=== PATIENT | male | born 1945 | race Caucasian/White ===

== ENCOUNTER 2019-08-08 12:51 | Emergency (ER) | payer MEDICARE ==
[2019-08-08] MEDS ORDERED: Ondansetron PF 4 MG/2 ML Vial ONE (13:37)
[2019-08-08] MEDS ORDERED: Morphine 4 MG/ML VIAL ONE (13:37)
[2019-08-08 14:00] LABS: #Eosinphils 0.2 thou/uL (0.0-0.7); #Lymphocytes 1.2 thou/uL (1.20-3.40); #Monocytes 0.3 thou/uL (0.11-0.59); %Eosinophils 3.1 % (0.0-10.0); %Lymphocytes 21.9 % (21.0-51.0); %Monocytes 4.5 % (0.0-10.0); %Neutrophils 70.5 % (42.0-75.0); Hemoglobin 10.2 g/dL (14.0-18.0); Mean Corpuscular HGB CONC 33.2 g/dL (32.0-36.0); Mean Corpuscular Hemoglobin 34.5 pg (27.0-31.0); Mean Platelet Volume 6.9 fL (7.4-10.4); Platelet Count 125 thou/uL (130-400); RBC Distribution Width 15.1 % (11.5-14.5); Red Blood Cell (RBC) Count 2.95 mill/uL (4.70-6.10); White Blood Cell (WBC) Count 5.6 thou/uL (4.8-10.8)
[2019-08-08 14:08] LABS: INR-International Normal Ratio 1.1; PTT 34.7 SEC (22.9-36.1); Prothrombin Time 13.7 SEC (12.0-14.7)
--- NOTE | 2019-08-08 14:09 | RAD ---
AP view of the pelvis INDICATION: Trauma COMPARISON: None. FINDINGS: Bones: No acute fracture or subluxation demonstrated. There is diffuse osteopenia Hips: There is mild degenerative change of both hips. There is partial visualization of a cephalomedu llary device involving the proximal left femur. SI joints and symphysis pubis: Normal appearing. Intrapelvic contents: There is severe vascular calcifications of the pelvic and proximal leg vasculat ure. IMPRESSION: No acute fracture or subluxation demonstrated.
--- NOTE | 2019-08-08 14:10 | RAD ---
XR Hip Rt 2-3 View: 08/08/2019 1:22 PM CLINICAL INDICATION: Trauma COMPARISON: None. FINDINGS: Fracture:There is mild osseous irregularity underlying the greater trochanter, age indeterminate Arthropathy:There is moderate to severe right hip joint osteoarthritis Incidental findings:Vascular disease. Partially imaged hardware of the left hip. IMPRESSION: Age-indeterminate mild osseous irregularity at the right greater trochanter. Correlate cl inically. If there is high suspicion for fracture, consider CT pelvis.
[2019-08-08 14:22] LABS: ALT (SGPT) 14 U/L (8-55); AST (SGOT) 26 U/L (5-34); Albumin 2.8 g/dL (3.4-4.8); Alkaline Phosphatase 141 U/L (40-110); Anion Gap 12 mmol/L (10-20); BUN (Urea Nitrogen) 8 mg/dL (8.4-25.7); Bilirubin, Total 0.5 mg/dL (0.2-1.2); Calc. Creatinine Clearance 0 mL/min (70-130); Calcium 8.2 mg/dL (7.8-10.44); Carbon Dioxide 25 mmol/L (23-31); Chloride 93 mmol/L (98-107); Estimated GFR-MDRD 89; Globulin 3.6 g/dL (2.4-3.5); Glucose 84 mg/dL (83-110); Potassium 4.4 mmol/L (3.5-5.1); Protein, Total 6.4 g/dL (5.8-8.1); Sodium 126 mmol/L (136-145)
--- NOTE | 2019-08-08 15:14 | CT ---
EXAM: CT Pelvis WO Con PROVIDED CLINICAL HISTORY: Injury to right hip after falling out of a wheelchair. Trauma. COMPARISON: Right hip radiographs obtained on this date. FINDINGS: There is evidence of a minimally fracture involving the right greater trochanter. No additi onal acute fracture is seen, and there is no dislocation. Postsurgical changes of the left hip are seen with an intramedullary carmen and dynamic compression screw transfixing the proximal left femur. Degenerative changes are seen in the lower lumbar spine with trace grade 1 anterolisthesis of L5 on S 1 likely attributable to facet degenerative changes. There is incomplete visualization of an infrarenal abdominal aortic aneurysm which measures 6.5 cm tr ansverse x5.7 cm AP which extends to the iliac artery bifurcation but does not involve the iliac arteries. Dense atherosclerotic vascular calcifications are seen in the visualized upper abdominal ao rta and involving the iliac and femoral arteries. IMPRESSION: 1. Incomplete visualization of an infrarenal abdominal aortic aneurysm with largest transverse dimens ion of 6.5 cm. Additional imaging with follow-up ultrasound examination versus CT scan of the abdomen is recommended to evaluate full extent of the aneurysm. 2. Mildly fracture involving the right greater trochanter. 3. Above findings discussed Dr. Roldan in the emergency department on 08/08/2019 at 1511 hours.
== END 2019-08-08 18:40 | disposition home or self-care (01) ==
LOC: ERS 12:51
DX: S72.111A Displaced fracture of greater trochanter of right femur, initial encounter for closed fracture (principal); I71.4 Abdominal aortic aneurysm, without rupture; I25.10 Atherosclerotic heart disease of native coronary artery without angina pectoris; I49.9 Cardiac arrhythmia, unspecified; I48.91 Unspecified atrial fibrillation; E78.5 Hyperlipidemia, unspecified; I10 Essential (primary) hypertension; J44.9 Chronic obstructive pulmonary disease, unspecified; F43.10 Post-traumatic stress disorder, unspecified; F32.9 Major depressive disorder, single episode, unspecified; F17.210 Nicotine dependence, cigarettes, uncomplicated; Z86.73 Personal history of transient ischemic attack (TIA), and cerebral infarction without residual deficits; W07.XXXA Fall from chair, initial encounter
CPT/HCPCS: 36415; 72170; 72192; 80053; 85025; 85610; 85730; 96361; 96374; 96375; J2270; J2405

== ENCOUNTER 2019-08-15 15:52 | Emergency (ER) | payer MEDICARE ==
--- NOTE | 2019-08-15 16:50 | RAD ---
EXAM: CHEST ONE VIEW HISTORY: Shortness of breath. COMPARISON: 07/14/2019. FINDINGS: Cardiac silhouette is enlarged. Pulmonary vasculature is at the upper limits of normal. There is incr eased density seen at the left lung base and involving the left midlung zone which may represent left pleural effusion and atelectasis. Superimposed pneumonia is a possibility. The right lung remain s clear. Degenerative changes are again seen in the spine. Vascular calcifications are seen in the thoracic aorta. IMPRESSION: 1. Left pleural effusion with parenchymal densities in the left midlung zone which may represent eith er atelectasis or pneumonia. Follow-up PA and lateral chest x-ray is recommended. 2. Cardiomegaly.
[2019-08-15 16:52] LABS: Mean Corpuscular HGB CONC 32.9 g/dL (32.0-36.0); Mean Corpuscular Hemoglobin 34.5 pg (27.0-31.0); Mean Platelet Volume 7.3 fL (7.4-10.4); Platelet Count 98 thou/uL (130-400); RBC Distribution Width 15.1 % (11.5-14.5); Red Blood Cell (RBC) Count 2.91 mill/uL (4.70-6.10); White Blood Cell (WBC) Count 4.7 thou/uL (4.8-10.8)
[2019-08-15 17:11] LABS: #Eosinphils 0.1 thou/uL (0.0-0.7); #Lymphocytes 0.8 thou/uL (1.20-3.40); #Monocytes 0.4 thou/uL (0.11-0.59); #Neutrophils 3.5 thou/uL (1.40-6.50); %Basophils 0.3 % (0.0-1.0); %Eosinophils 1.1 % (0.0-10.0); %Lymphocytes 15.9 % (21.0-51.0); %Neutrophils 74.7 % (42.0-75.0)
[2019-08-15 17:13] LABS: ALT (SGPT) 9 U/L (8-55); AST (SGOT) 15 U/L (5-34); Albumin 2.7 g/dL (3.4-4.8); Alkaline Phosphatase 138 U/L (40-110); Anion Gap 11 mmol/L (10-20); BUN (Urea Nitrogen) 11 mg/dL (8.4-25.7); Bilirubin, Total 0.8 mg/dL (0.2-1.2); CK (CPK) 27 U/L (30-200); Calc. Creatinine Clearance 0 mL/min (70-130); Calcium 8.6 mg/dL (7.8-10.44); Carbon Dioxide 25 mmol/L (23-31); Chloride 92 mmol/L (98-107); Estimated GFR-MDRD Greater than 90; Globulin 3.2 g/dL (2.4-3.5); Glucose 73 mg/dL (83-110); Lipase 4 U/L (8-78); Potassium 5.2 mmol/L (3.5-5.1); Protein, Total 5.9 g/dL (5.8-8.1); Sodium 123 mmol/L (136-145)
[2019-08-15 17:14] LABS: Anisocytosis SLIGHT = 6-15 cells (100X) (0-5/hpf); MDiff Complete? YES; Macrocytosis SLIGHT = 6-15 cells (100X) (0-5/hpf); Platelet Morphology Comment Appears Decreased; Polychromasia SLIGHT = 2-3 cells (100X) (0-2/hpf)
--- NOTE | 2019-08-15 20:04 | CT ---
ABDOMEN CT WITH CONTRAST PELVIC CT WITH CONTRAST 08/15/19 HISTORY: Patient had a recent fracture and fall. Increased weakness. Shortness of breath. COMPARISON: None. CORRELATION: Pelvic CT 08/08/19. FINDINGS: ABDOMEN CT: Small right and large left sided pleural effusion. Limited evaluation of the lung parenchyma. Nodularity of the liver. Unremarkable spleen, pancreas, and adrenal glands. Cholelithiasis without evidence of cholecystitis. Bilateral renal cortical atrophy. Hypodensities are too small to characterize. No obstructive uropat hy. Symmetric attenuation of the psoas muscles. Limited evaluation of the alimentary canal by the lack of oral contrast. Gastric mucosa, duodenum, an d multiple normal caliber small bowel loops are identified. Ileocecal junction is unremarkable. Appen soto is not appreciated. No inflammation at the cecal apex. There is scattered fecal material in a non distended, nondilated colon. There is no evidence of colon obstruction. Symmetric attenuation of the psoas muscles. Atherosclerosis and aneurysmal dilatation of the infrarenal abdominal aorta. The aorta measures 5.8 x 6.1 cm. There is linear enhancement within the eccentric thrombus. There does appear to be a possibl e small dissection flap with enhancement in the true and false lumen. If this is not a dissection fla p, the possibility of an ulcerative plaque in an atheromatous aorta is a second consideration. There is also a second area of linear enhancement which appears to be contiguous with the inferior mesenter ic artery. There is no obvious periaortic fat stranding at this time. No mesenteric mass, lymphadenopathy, or free air. Small amount of fluid in both pericolonic gutters. CT PELVIS: No mass, lymphadenopathy, free air or free fluid. Right intertrochanteric fracture is redemonstrated. Internal fixation in the left hip is noted. IMPRESSION: 1. Large left sided effusion, incompletely evaluated. Small right sided pleural effusion. 2. No evidence of bowel obstruction. 3. Atherosclerosis and aneurysmal dilatation of the infrarenal abdominal aorta. There appears to be enhancing contrast involving what may represent a false lumen from a short segment dissection lori meseret ulceration in atheromatous plaque. Cardiovascular surgical consultation is recommended. Results of the study discussed with Dr. Roldan 08/15/19 at 7:48 p.m. Code CR POS: OFF
[2019-08-15 21:45] LABS: Base Excess-Venous 0.3 mmol/L (-2.0 to 3.0); Bicarbonate (HCO3v) 28.1 mmol/L (22.0-28.0); CO2 Tension (PvCO2) 61.2 mmHg (40.0-50.0); Chloride 87 mmol/L (98-107); Hemoglobin - Calc 10.3 g/dL (14.0-18.0); Potassium 5.1 mmol/L (3.5-5.1); Sodium 125 mmol/L (138-145); vO2 Saturation-calc 57.4 % (60.0-85.0)
== END 2019-08-15 22:46 ==
LOC: ERS 15:52
DX: J18.0 Bronchopneumonia, unspecified organism (principal); S72.111D Displaced fracture of greater trochanter of right femur, subsequent encounter for closed fracture with routine healing; R09.02 Hypoxemia; R62.51 Failure to thrive (child); E87.1 Hypo-osmolality and hyponatremia; I25.10 Atherosclerotic heart disease of native coronary artery without angina pectoris; I49.9 Cardiac arrhythmia, unspecified; I48.91 Unspecified atrial fibrillation; E78.5 Hyperlipidemia, unspecified; I10 Essential (primary) hypertension; J44.9 Chronic obstructive pulmonary disease, unspecified; F32.9 Major depressive disorder, single episode, unspecified; F43.10 Post-traumatic stress disorder, unspecified; F17.210 Nicotine dependence, cigarettes, uncomplicated; Z86.73 Personal history of transient ischemic attack (TIA), and cerebral infarction without residual deficits
CPT/HCPCS: 36415; 71045; 74177; 80053; 82330; 82550; 82803; 83690; 83880; 84484; 85025; 87040; 93005; 94760; 96365; 96366; J1956